=== PATIENT | female | born 1995 | race Caucasian/White ===

== ENCOUNTER 2025-09-07 12:22 | Emergency (ER) | payer OTHER, SELFPAY ==
--- NOTE | ~2025-09-07 | US_ITS ---
EXAMINATION: US OB <= 14 weeks fetus DATE: 09/07/2025 14:05 INDICATION: Vaginal bleeding at the transition from the first and second trimester of . TECHNIQUE: Real-time pelvic ultrasound utilizing both a transvaginal and transabdominal probe was performed. The interpreting radiologist was not present for the study. COMPARISON: None. FINDINGS: The uterus measures 11.7 x 9.6 x 10.0 cm. There is an intrauterine gestational sac. A single fetus is identified. The crown rump length measures 7.6 cm, which correlates with an estimated gestational age of 13 weeks and 5 days. heart motion is identified measuring 163 beats per minute (bpm) by M-mode Doppler. The right and left ovaries are not visualized. There is no free fluid in the pelvis. IMPRESSION: 1. Single living fetus with heart 163 bpm. 2. Gestational age by ultrasound of 13 weeks 5 day(s) +/- 1 week and 2 days with ultrasound estimated date of delivery (ZAID) of 03/10/2026. Reviewed, dictated and finalized at location A. FORM SUPERVISOR IMPRESSION: 1. Single living fetus with heart 163 bpm. 2. Gestational age by ultrasound of 13 weeks 5 day(s) +/- 1 week and 2 days wi th ultrasound estimated date of delivery (ZAID) of 03/10/2026.
[2025-09-07 12:23] VITALS: BP 149/83; PULSE 93; RESP 18; TEMP 37; O2SAT 96
[2025-09-07 13:24] VITALS: BP 139/83; PULSE 90
[2025-09-07 13:25] VITALS: BP 134/92; BP 137/88; PULSE 76; PULSE 96
[2025-09-07 13:25] LABS: Hematocrit 33.6 % (37.0-47.0); Hemoglobin 11.4 g/dL (12.0-15.0); Immature Granulocyte Percent A 0.6 % (0-0.5); Lymphocytes Absolute Auto 2.02 K/mm3 (0.9-3.2); Mean Corpuscular HGB Conc 33.9 g/dl (32-36); Mean Corpuscular Hemoglobin 29.6 pg (26-34); Mean Corpuscular Volume 87.3 fl (80-100); Nucleated Red Blood Cells Absolute Auto 0.000 K/mm3 (0.0-0.012); Nucleated Red Blood Cells Perc 0.0 % (0.0-0.2); Platelet Count Result 298 k/mm3 (150-375); Red Blood Count 3.85 M/mm3 (4.2-5.4); White Blood Count 8.8 K/mm3 (4.5-10.0)
--- NOTE | 2025-09-07 13:33 | PC.NURSE ---
FHT ranging from 179-200
[2025-09-07 13:34] LABS: Alanine Aminotransferase 31 U/L (6-35); Albumin Level 4.3 g/dL (3.5-5.1); Alkaline Phosphatase 46 U/L (38-126); Anion Gap 8 mmol/L (4-12); Aspartate Amino Transferase 27 U/L (14-36); Bilirubin,Total 0.4 mg/dL (0.2-1.3); Blood Urea Nitrogen 7 mg/dL (7-17); Calcium 9.2 mg/dL (8.4-10.2); Carbon Dioxide 22 mmol/L (22-30); Chloride 102 mmol/L (98-107); Estimated CRCL calculation 108 ml/min; Estimated Glomerular Filt Rate > 60; Glucose 79 mg/dL (65-110); Potassium 3.7 mmol/L (3.4-5.0); Sodium 132 mmol/L (137-145); Total Protein 7.4 g/dL (6.3-8.2)
[2025-09-07 13:39] LABS: INR 1.0; Partial Thromboplastin Time 26.6 Seconds (22.3-36.8); Prothrombin Time 13.1 Seconds (11.1-14.7)
--- NOTE | 2025-09-07 13:45 | ED_ITS ---
HPI - Female Genitourinary General Chief complaint: Vaginal Bleeding Stated complaint: 13 weeks , vaginal bleeding Time Seen by Provider: 09/07/25 13:46 Source: patient and family Limitations: no limitations History of Present Illness HPI Narrative: 30 YEARS OLD WHITE FEMALE 13 WEEKS DEVELOPED VAGINAL BLEED, HEAVY AT WORK PRIOR TO ARRIVAL. SHE DENIES ANY CRAMPS OR ABDOMINAL PAIN ANY NAUSEA OR VOMITING FEVER OR CHILLS. PATIENT IS 1 PARA 0 0. Related Data Allergies Allergy/AdvReac Type Severity Reaction Status Date / Time No Known Allergies Allergy Unverified 11/11/13 11:02 Review of Systems 2 Review of Systems: All systems reviewed & are unremarkable except as noted in HPI and below Exam 2 Narrative: GENERAL APPEARANCE: WELL-DEVELOPED, WELL-NOURISHED SKIN: NORMAL COLOR HEAD: NORMOCEPHALIC, NONTRAUMATIC EYES: CLEAR CONJUNCTIVA ENT: OROPHARYNX NORMAL, EARS NORMAL, NOSE NORMAL NECK: SUPPLE, NONTENDER CHEST AND RESPIRATORY: AIRWAY PATENT, NO RESPIRATORY DISTRESS, NO ACCESSORY MUSCLE USE HEART: REGULAR RATE/RHYTHM ABDOMEN: SOFT, NONTENDER, NO ORGANOMEGALY, QUIET BOWEL SOUNDS VASCULAR: NORMAL PERIPHERAL PULSES, NORMAL CAPILLARY REFILL. MUSCULOSKELETAL: NORMAL RANGE OF MOTION, NONTENDER BACK NEUROLOGIC: ALERT AND ORIENTED ?3, FISCAL ASSISTANT IS NORMAL TESTED, NO GROSS MOTOR DEFICIT : Speculum Exam - Vagina: normal appearance of the vagina Speculum Exam - Cervix: normal appearance of the cervix and Cervical os closed Other: DARK BROWNISH BLOOD IN THE FORNIX, NO ACTIVE BLEEDING, LONG Q-TIP BARELY SATURATED WITH BLOOD Course Vital Signs Vital signs: Vital Signs Temperature 37.0 C 09/07/25 12:23 Pulse Rate 93 09/07/25 12:23 Respiratory Rate 18 09/07/25 12:23 Blood Pressure 149/83 H 09/07/25 12:23 Pulse Oximetry 96 09/07/25 12:23 Oxygen Delivery Room Air 09/07/25 12:23 Temperature 37.0 C 09/07/25 12:23 Pulse Rate 65 09/07/25 15:37 Respiratory Rate 20 09/07/25 15:37 Blood Pressure 143/90 H 09/07/25 15:37 Pulse Oximetry 98 09/07/25 15:37 Oxygen Delivery Room Air 09/07/25 12:23 MDM - Female Genitourinary MDM Narrative Medical decision making narrative: PATIENT CAME WITH VAGINAL BLEED, 13 WEEKS , NO OTHER SYMPTOMS VITAL SIGNS SHOWING BLOOD PRESSURE OF 149/83 OTHERWISE WITHIN NORMAL LIMIT PHYSICAL EXAMINATION IS DIFFERENTIAL DIAGNOSIS MISCARRIAGE, URINARY TRACT INFECTION BLOOD WORKUP TODAY CBC CMP, BETA HCG, BLOOD TYPE SHOWED SODIUM 132, BLOOD TYPE A-NEGATIVE, PATIENT RECEIVED RHOGAM PELVIC ULTRASOUND SHOWED SINGLE LIVING FETUS WITH HEART 163, GESTATIONAL AGE BY ULTRASOUND OF 13 WEEKS 5 DAYS. PATIENT WENT TO THE BATHROOM AND REPORTED NO ACTIVE VAGINAL BLEED, NO CRAMPS, NO ABDOMINAL PAIN. URINALYSIS SHOWED NO EVIDENCE OF INFECTION DIAGNOSIS THREATENED THE PT WAS DISCHARGED TO HOME.THE PT,S CONDITION UPON DISCHARGE WAS FAIR,EDUCATION WAS PROVIDED TO THE PT IN REFERENCE TO THE FINAL IMPRESSION,DISCHARGE STUDY RESULTS,TREATMENT,PROGNOSIS AND NEED FOR FOLLOW UP . Differential Diagnosis Differential diagnosis: Likely urinary tract infection Lab Data Attestation: I reviewed the patient's lab results. 09/07/25 13:09 09/07/25 13:09 Labs: Lab Results 09/07/25 09/07/25 Range/Units 13:09 17:29 WBC 8.8 (4.5-10.0) K/mm3 RBC 3.85 L (4.2-5.4) M/mm3 Hgb 11.4 L (12.0-15.0) g/dL Hct 33.6 L (37.0-47.0) % MCV 87.3 (80-100) fl MCH 29.6 (26-34) pg MCHC 33.9 (32-36) g/dl RDW 12.6 (11.5-14.5) % Plt Count 298 (150-375) k/mm3 MPV 9.6 (7.4-10.4) fl Immature Gran % (Auto) 0.6 H (0-0.5) % Neut % (Auto) 69.0 (45.5-73.1) % Lymph % (Auto) 23.0 (18.3-44.2) % [place] % (Auto) 6.3 (2.6-8.5) % Eos % (Auto) 0.8 (0-4.4) % Baso % (Auto) 0.3 (0.2-1.2) % Lymph # (Auto) 2.02 (0.9-3.2) K/mm3 [place] # (Auto) 0.6 (0.1-0.6) K/mm3 Eos # (Auto) 0.1 (0-0.3) K/mm3 Baso # (Auto) 0.0 (0.0-0.1) K/mm3 Abs Immat Gran (auto) 0.05 H (0.00-0.031) K/mm3 Absolute Neuts (auto) 6.1 (1.3-6.7) K/mm3 Absolute Nucleated RBC 0.000 (0.0-0.012) K/mm3 Nucleated RBC % 0.0 (0.0-0.2) % PT 13.1 (11.1-14.7) Seconds INR 1.0 APTT 26.6 (22.3-36.8) Seconds Sodium 132 L (137-145) mmol/L Potassium 3.7 (3.4-5.0) mmol/L Chloride 102 (98-107) mmol/L Carbon Dioxide 22 (22-30) mmol/L Anion Gap 8 (4-12) mmol/L BUN 7 (7-17) mg/dL Creatinine 0.48 L (0.7-1.0) mg/dL Estim Creat Clear Calc 108 ml/min Estimated GFR > 60 (59 - ) Glucose 79 (65-110) mg/dL Calcium 9.2 (8.4-10.2) mg/dL Total Bilirubin 0.4 (0.2-1.3) mg/dL AST 27 (14-36) U/L ALT 31 (6-35) U/L Alkaline Phosphatase 46 (38-126) U/L Total Protein 7.4 (6.3-8.2) g/dL Albumin 4.3 (3.5-5.1) g/dL Beta HCG, Quant 69529.00 mIU/ML Urine Color Yellow (Yellow) Urine Appearance Cloudy H (Clear) Urine pH 7.0 (5.0-9.0) Ur Specific [place] 1.015 (1.001-1.035) Urine Protein Negative (Negative) mg/dL Urine Glucose (UA) Negative (Negative) mg/dL Urine Ketones 2+ H (Negative) mg/dL Ur Blood (Man) 2+ H (Negative) Urine Nitrate Negative (Negative) Urine Bilirubin Negative (Negative) Urine Urobilinogen 0.2 (<2.0) mg/dL Leukocyte Esterase Rfl Trace H (Negative) SANTANA/UL Urine RBC 6-10 H (0-2) /hpf Urine WBC 0-5 (0-3) /hpf Ur Squamous Epith Cells Moderate (Few) /hpf Urine Bacteria None seen /hpf Urine Casts 0-2 Blood Type A Negative Antibody Screen Negative Screen Not Reportable Baby's Blood Type Not Reportable Baby's LISETTE Not Reportable Doses of RhIg Required 1 Imaging Data Radiologist's impression: Impressions Ultrasound 09/07/25 14:08 IMPRESSION: 1. Single living fetus with heart 163 bpm. 2. Gestational age by ultrasound of 13 weeks 5 day(s) +/- 1 week and 2 days with ultrasound estimated date of delivery (ZAID) of 03/10/2026. Critical Care Time Critical Care Time Critical Care Time: No Discharge Plan Discharge Clinical Impression: Threatened Patient Disposition: Home Condition: Stable Instructions: Threatened Miscarriage (ED) Additional Instructions: RETURN IF SYMPTOMS ARE WORSENING , CALL YOUR FAMILY PHYSICIAN FOR APPOINTMENT, TAKE TYLENOL NEEDED FOR ACHES AND PAIN, CONTINUE HOME MEDICATIONS. Patient Language: Comoran Follow-up/Referrals: Yaakov Alvarado MD [Primary Care Provider, Family Practice] Stand Alone Forms: Work/School Release IP
[2025-09-07] MEDS: RHO(D) IMMUNE GLOBULIN 300 MCG/2 ML SYRINGE IM (15:34)
[2025-09-07 15:37] VITALS: BP 143/90; PULSE 65; RESP 20; O2SAT 98
--- NOTE | 2025-09-07 17:29 | PC.NURSE ---
Pelvic exam done. Pt tolerated well
[2025-09-07 17:43] LABS: Add Urine Microscopic? YES; Appearance Urine Cloudy (Clear); Glucose Urine UA Negative (Negative); Leukocyte Esterase Ur Trace LEU/UL (Negative); Nitrate Urine Negative (Negative); Non Pathogenic Casts 0-2; Specific Grav Ur 1.015 (1.001-1.035)
== END 2025-09-07 19:20 | disposition home or self-care (01) ==
PROVIDERS: Physician Assistant; Emergency Provider Emergency Medicine; PCP Family Medicine
DX: O20.0 Threatened abortion (principal); Z3A.13 13 weeks gestation of pregnancy
CPT/HCPCS: 36415; 76801; 80053; 81001; 84702; 85025; 85461; 85610; 85730; 86850; 86900; 86901; 90384; 96372; 99284; J2790